=== PATIENT | male | born 1970 | race Caucasian/White ===

== ENCOUNTER 2018-05-17 14:53 | Inpatient (IN) | payer OTHER ==
[~2018-05-17] VITALS: Ht 172.7 cm; Wt 72.6 kg
[2018-05-17] MEDS ORDERED: LORAZEPAM 2MG/ML CPJ IV ONE ×2 (17:00→17:15)
[2018-05-17 17:21] LABS: BASOPHILS % 0.3 % (0.0-2.0); EOSINOPHILS % 0.4 % (0.0-5.0); HEMATOCRIT. 40.3 % (42.0-52.0); HEMOGLOBIN. 13.9 g/dL (14.0-18.0); LYMPHOCYTES % 19.7 % (20.0-50.0); MEAN CORPUSCULAR HEMOGLOBIN 32.9 pg (28.0-32.0); MEAN CORPUSCULAR VOLUME 95.2 fL (80.0-94.0); MEAN PLATELET VOLUME 7.8 fl (7.4-10.4); MONOCYTES % 7.3 % (2.0-8.0); NEUTROPHILS % 72.3 % (40.0-76.0); PLATELET 154 x1000/uL (130-400); RED BLOOD CELL COUNT 4.23 mill/uL (4.7-6.1); RED CELL DISTRIBUTION WIDTH 13.3 % (11.6-14.6)
[2018-05-17 17:24] LABS: CHLORIDE 107 mEq/L (98-107)
[2018-05-17 17:28] LABS: CLARITY URINE CLEAR (CLEAR); COLOR URINE DARK YELLOW (YELLOW); KETONES URINE TRACE (NEGATIVE); LEUKOCYTE ESTERASE URINE NEGATIVE (NEGATIVE); NITRITE URINE NEGATIVE (NEGATIVE); OCCULT BLOOD URINE NEGATIVE (NEGATIVE); PROTEIN URINE NEGATIVE (NEGATIVE); SPECIFIC GRAVITY URINE 1.018 (1.005-1.030); UROBILINOGEN URINE 0.2 E.U./dL (0.2-1.0)
[2018-05-17 17:29] LABS: ETHANOL BLOOD < 10 mg/dL
[2018-05-17 17:33] LABS: INR 1.1; PROTHROMBIN TIME 10.8 sec (9.1-11.1)
[2018-05-17] MEDS ORDERED: DIPHENHYDRAMINE 50MG/ML VIAL IV ONE (17:45)
[2018-05-17] MEDS ORDERED: HALOPERIDOL LACTATE 5MG/ML VIAL IM ONE (17:45)
[2018-05-17 17:49] LABS: *AMPHETAMINES SCREEN URINE NEGATIVE (NEGATIVE); *BARBITURATES SCREEN URINE NEGATIVE (NEGATIVE); *BENZODIAZEPINES SCREEN URINE PRESUMTIVE POSITIVE (NEGATIVE); *COCAINE SCREEN URINE NEGATIVE (NEGATIVE); METHADONE URINE SCREEN NEGATIVE (NEGATIVE)
[2018-05-17 17:50] LABS: CANNABINOID URINE SCREEN PRESUMTIVE POSITIVE (NEGATIVE); OPIATES URINE SCREEN NEGATIVE (NEGATIVE); PHENCYCLIDINE URINE SCREEN NEGATIVE (NEGATIVE)
[2018-05-17] MEDS ORDERED: FLUMAZENIL 0.1 MG/ML 5ML VIAL IV ONE ×2 (21:15→21:30)
[2018-05-18] MEDS ORDERED: IPRATROPIUM/ALBUTEROL 0.5-3(2.5)MG/3ML NEB INH PRN (17:45)
[2018-05-18] MEDS ORDERED: ONDANSETRON HCL 4MG/2ML INJ IV PRN (17:45)
[2018-05-18] MEDS ORDERED: ACETAMINOPHEN 650MG SUPP PR PRN (17:45)
[2018-05-18] MEDS ORDERED: MAGNESIUM/ALUMINUM HYDROXIDE/SIMETHICONE 30ML UDC PO PRN (17:45)
[2018-05-18] MEDS ORDERED: DIPHENHYDRAMINE 50MG/ML VIAL IV PRN (17:45)
[2018-05-18] MEDS ORDERED: ACETAMINOPHEN 325MG TABLET PO PRN (17:45)
[2018-05-18] MEDS ORDERED: CLONIDINE 0.1MG TABLET PO PRN (17:45)
[2018-05-18] MEDS ORDERED: NA PHOS,M-B/NA PHOS,DI-BA ENEMA 118ML PR PRN (17:45)
[2018-05-18 18:14] LABS: BASOPHILS % 0.4 % (0.0-2.0); EOSINOPHILS % 0.9 % (0.0-5.0); HEMATOCRIT. 40.3 % (42.0-52.0); HEMOGLOBIN. 13.6 g/dL (14.0-18.0); LYMPHOCYTES % 13.4 % (20.0-50.0); MEAN CORPUSCULAR HEMOGLOBIN 32.2 pg (28.0-32.0); MEAN CORPUSCULAR VOLUME 95.5 fL (80.0-94.0); MEAN PLATELET VOLUME 7.4 fl (7.4-10.4); MONOCYTES % 7.8 % (2.0-8.0); NEUTROPHILS % 77.5 % (40.0-76.0); PLATELET 171 x1000/uL (130-400); RED BLOOD CELL COUNT 4.22 mill/uL (4.7-6.1); RED CELL DISTRIBUTION WIDTH 13.7 % (11.6-14.6)
[2018-05-18 18:18] LABS: CHLORIDE 104 mEq/L (98-107)
[2018-05-18] MEDS: CHLORDIAZEPOXIDE 25MG CAPSULE PO PRN (19:57)
[2018-05-18] MEDS: THIAMINE HCL 100MG TABLET PO SCH (20:16)
[2018-05-18] MEDS: SODIUM CHLORIDE 0.45% 1,000 ML IV SCH (20:16)
[2018-05-18] MEDS: FOLIC ACID 1MG TABLET PO SCH (20:26)
[2018-05-18] MEDS: NICOTINE 7MG PATCH TD SCH (20:27)
[2018-05-18] MEDS: ACETAMINOPHEN 650MG/20.3ML UDC GT PRN (21:28)
[2018-05-18] MEDS ORDERED: SODIUM CHLORIDE 0.9% INJ 3ML FLUSH IVF SCH (22:00)
[2018-05-19 04:56] LABS: CHLORIDE 102 mEq/L (98-107)
[2018-05-19 05:10] LABS: LDL CHOLESTEROL 60 mg/dL (5-100)
[2018-05-19 05:13] LABS: HDL CHOLESTEROL 102 mg/dL (40-59)
[2018-05-19 06:15] LABS: BASOPHILS % 0.2 % (0.0-2.0); EOSINOPHILS % 1.3 % (0.0-5.0); HEMOGLOBIN. 13.9 g/dL (14.0-18.0); LYMPHOCYTES % 15.4 % (20.0-50.0); MEAN CORPUSCULAR HEMOGLOBIN 33.6 pg (28.0-32.0); MEAN CORPUSCULAR VOLUME 96.7 fL (80.0-94.0); MEAN PLATELET VOLUME 7.3 fl (7.4-10.4); NEUTROPHILS % 74.1 % (40.0-76.0); PLATELET 158 x1000/uL (130-400); RED BLOOD CELL COUNT 4.14 mill/uL (4.7-6.1); RED CELL DISTRIBUTION WIDTH 13.3 % (11.6-14.6)
[2018-05-19 10:00] VITALS: BP 120/85
[2018-05-19 12:00] VITALS: BP 114/73
[2018-05-19] MEDS: THIAMINE HCL 100MG TABLET PO SCH (12:03)
[2018-05-19] MEDS: CHLORDIAZEPOXIDE 25MG CAPSULE PO PRN (12:03)
[2018-05-19] MEDS: FOLIC ACID 1MG TABLET PO SCH (12:03)
[2018-05-19] MEDS: NICOTINE 7MG PATCH TD SCH (12:03)
[2018-05-19] MEDS: SODIUM CHLORIDE 0.45% 1,000 ML IV SCH (12:04)
[2018-05-19] MEDS: ACETAMINOPHEN 650MG/20.3ML UDC GT PRN (12:04)
[2018-05-19 16:00] VITALS: BP 120/83
[2018-05-19 16:47] VITALS: BP_SYST 114; BP_SYST 130; BP_DIAS 73; BP_DIAS 84
== END 2018-05-19 21:20 | disposition home or self-care (01) | DRG 52 ==
LOC: ER 15:28 → 8WST 19:14 → EDBEDREQTM 19:17 → EDBEDREQ 19:17 → ENRESERV 05-19 07:19
PROVIDERS: ADMIT Family Medicine; ATTEND Family Medicine
DX: G92 Toxic encephalopathy (principal); R45.851 Suicidal ideations; F20.9 Schizophrenia, unspecified; F10.239 Alcohol dependence with withdrawal, unspecified; F17.200 Nicotine dependence, unspecified, uncomplicated; F31.9 Bipolar disorder, unspecified; I51.7 Cardiomegaly; Z88.0 Allergy status to penicillin; Z71.6 Tobacco abuse counseling
CPT/HCPCS: 36415; 71045; 80061; 80305; 80307; 80320; 80329; 82962; 84484; 93005; 96361; 96374; 96375; 96376; 97162; 99284; 99285; J1200; J1630; J2060; G0480